=== PATIENT | male | born 1955 | race Caucasian/White ===

== ENCOUNTER 2022-05-22 11:50 | Outpatient (CLI) | payer OTHER, SELFPAY ==
[2022-05-22 13:55] LABS: Chloride* 106 mmol/L (96-114); Potassium* 4.7 mmol/L (3.6-5.1); Sodium* 139 mmol/L (135-149)
[2022-05-22 13:57] LABS: Cholesterol* 180 mg/dL (90-199); Estimated Glomerular Filt Rate 84 ml/min
[2022-05-22 13:58] LABS: Blood Urea Nitrogen* 16 mg/dL (7-30); Carbon Dioxide* 28 mmol/L (20-32); Glucose* 100 mg/dL (60-115); Triglycerides* 157 mg/dL (40-149)
[2022-05-22 13:59] LABS: HDL Cholesterol* 56 mg/dL (>=40); LDL Cholesterol Calculated 93 mg/dL (<100)
== END 2022-05-22 11:51 | disposition home or self-care (01) ==
PROVIDERS: PCP Family Medicine; Visit Provider Family Medicine
DX: Z00.00 Encounter for general adult medical examination without abnormal findings (principal); I10 Essential (primary) hypertension; Z12.5 Encounter for screening for malignant neoplasm of prostate; Z13.6 Encounter for screening for cardiovascular disorders
CPT/HCPCS: 80048; 80061; 84153

== ENCOUNTER 2023-05-04 08:03 | Outpatient (CLI) | payer OTHER, SELFPAY | END 2023-05-04 08:04 | disposition home or self-care (01) | LOC: NFLDREF 05-09 12:32 | PROVIDERS: PCP Family Medicine; Referring Provider Family Medicine; Visit Provider Family Medicine | DX: Z00.00 Encounter for general adult medical examination without abnormal findings (principal); I10 Essential (primary) hypertension; Z12.5 Encounter for screening for malignant neoplasm of prostate; Z13.1 Encounter for screening for diabetes mellitus; Z13.220 Encounter for screening for lipoid disorders; Z13.6 Encounter for screening for cardiovascular disorders | CPT/HCPCS: 80048; 80061; G0103 ==

== ENCOUNTER 2023-05-18 07:01 | Outpatient (CLI) | payer MEDICARE, SELFPAY ==
--- NOTE | 2023-05-18 07:15 | CRLHL7_ITS ---
For Patients: As a result of the Century Cures Act, medical imaging exams and procedure reports are released immediately into your electronic medical record. You may view this report before your referring provider. If you have questions, please contact your health care provider. INDICATION: Screening for abdominal aortic aneurysm. TECHNIQUE: Conventional two-dimensional grayscale, color-flow and pulsed Doppler ultrasound examination of the abdominal aorta and the common iliac arteries. COMPARISON: None. FINDINGS: Mild atherosclerotic disease is demonstrated, but the abdominal aorta is normal in caliber at 2.9 cm in maximal cross-sectional dimension above the level of the renal artery origins and 2.3 cm below the level of the renal arteries. The common iliac arteries are also normal in caliber. The right measures 1.2 cm in maximal cross-sectional dimension and the left 1.3 cm. IMPRESSION: Negative abdominal aortic ultrasound except for mild atherosclerosis. Dictated by Odin Simeon MD @ 05/18/2023 11:48:16 AM (Electronically Signed)
== END 2023-05-18 07:02 | disposition home or self-care (01) ==
LOC: US 07:02
PROVIDERS: PCP Family Medicine; Visit Provider Family Medicine
DX: Z13.6 Encounter for screening for cardiovascular disorders (principal); I70.0 Atherosclerosis of aorta
CPT/HCPCS: 76706

== ENCOUNTER 2024-05-16 07:59 | Outpatient (CLI) | payer MEDICARE, SELFPAY | END 2024-05-16 08:00 | disposition home or self-care (01) | LOC: NFLDREF 05-17 18:27 | PROVIDERS: PCP Family Medicine; Referring Provider Family Medicine; Visit Provider Family Medicine | DX: I10 Essential (primary) hypertension (principal); Z13.220 Encounter for screening for lipoid disorders; Z12.5 Encounter for screening for malignant neoplasm of prostate | CPT/HCPCS: 80053; 80061; G0103 ==